=== PATIENT | male | born 1965 | race Caucasian/White ===

== ENCOUNTER 2016-11-19 14:38 | Emergency (ER) | payer MEDICARE ==
[~2016-11-19] VITALS: Ht 195.6 cm; Wt 81.6 kg
[2016-11-19] MEDS ORDERED: PRILOSEC20 M1 PO (15:24)
--- NOTE | 2016-11-19 15:25 | Emergency Room Report ---
History of Present Illness Time Seen by MD Carlson Presenting Problem in Triage Pt arrived:Ambulance Stretcher Presenting Problem:FEELS THOUGH SOMETHING STUCK IN THROAT Onset of symptoms date/time:11/19/16 or onset unknown for: Treatment Prior to Arrival: MANAGER IMAGE Provided by: Sepsis Risk Assessment: Temp: 98.4 B/P: 147/103 MAP: 117 Pulse: 108 Resp: 20 Recent fever? N Clinical Suspician of Infection? N Mental Status: 2 - Mildly Altered Sepsis Risk:Possible Sepsis Risk Have you (or family members/close friends) recently traveled outside the [place]? N If Yes, where/when: Have you had exposure to infectious disease within the past month? N TB? Other? Specify: he states about 30 minutes prior to arrival he had a burrito stuck in his throat he had a foreign body sensation in severity and is in her wrists but he states he tried to drink water but the water came back up and he could not swallow water. He states he hasn't tried to swallow water since then he states he is not having to spit up his own saliva. Date she has had problems with things getting stuck in his throat in the past but it never lasted this long and he was always able to drink water despite the foreign body sensation in the past. States she has not had a scope done in the past he states he has no reflux symptoms that he knows of denies any heartburn denies any chest pain abdominal pain or any pain. He states he thinks he can drink water now ALLERGIES Coded Allergies: No Known Allergies (11/19/16) History Medical History General CAD? No Angina: No [place]: No Hypertension? No Hyperlipidemia? No CHF? No DVT? No PE? No COPD? No Asthma? No Anemia? No GERD? No Gastric ulcers? No GI Bleed? No Hernia? No Hypothyroidism? No CVA? No Seizures? No Diabetes? No Renal Insuffiency? No End Stage Renal Disease? No UTI? No Stones? No BPH? No GB Disease: No Nephritic Syndrome? No Asplenia? No Hepatitis? No Sickle Cell Disease? No Arthritis? No Migraines? No Cataracts? No Glaucoma? No MRSA? No HIV? No TB? No Anxiety? No Depression? No Cancer? No More? No Immunization Hx Ped.Immunizations UTD No DT/Tetanus Unknown Surgical Hx Previous Surgery?Y RIGHT ARM Social History Smoking Hx Smoker: Former Smoker Tobacco: No Alcohol Alcohol: No Review of Systems All Other Systems Reviewed and Negative Physical Exam Vital Signs Vital Signs Date Time Temp Pulse Resp B/P Pulse O2 O2 Flow FiO2 Ox Delivery Rate 11/19 1443 98.4 108 20 147/103 95 11/19 1442 98.4 General Appearance: Nontoxic Head: Normocephalic, without obvious abnormality, atraumatic. Eyes: conjunctiva/corneas clear ENT: Mucous membranes moist. Throat is clear Neck is unremarkable on visual inspection Neck: No jugular venous distention. Cardiac: regular rate and rhythm Lungs: Clear to auscultation bilaterally Abdomen: Nontender, Nondistended, positive bowel sounds, no rebound Extremities: no edema Musculoskeletal: No chest wall tenderness Skin: No rashes or lesions to exposed skin. Neurologic: Alert. No gross focal deficits Psychiatric: Normal affect (Navjot Ca MD) General Appearance normal appearance Respiratory Status No: respiratory distress. Cardiovascular normal exam Neurologic alert Medical Decision Making LABS/Meds/Orders Pt receiving controlled substance in ED? No Comment H and drank 12 ounces of water without any problems. S with outpatient follow-up a soft diet until cleared by scope. Place on some antacids Departure Departure Time of Disposition 1522 Disposition DC Home or Self Care(routine) Clinical Impression Primary Impression: Esophageal obstruction due to food impaction Condition STABLE Referrals Scotty Orozco MD NO REFERRAL (Family) ARELY GUERRERO MD Patient Instructions Soft Diet Additional Instructions Maintain a soft diet until you get cleared by the referral doctors you will need to have a scope done for evaluation Discharge Counseling Counseled pt/family regarding diagnosis, home care, follow up needs Prescriptions Current Visit Scripts OMEPRAZOLE MAGNESIUM (Prilosec 20MG) 20 MG PO DAILY #14 TCP ED Critical Care Critical Care No If Critical Care minutes are documented, the time involved in the performance of seperately reportable procedures was not counted toward critical care time documented. I directly delivered medical care to this critically ill and/or injured patient. Timely evaluation and treatment was necessary to address the significant organ system(s) dysfunction present in this patient. at 1525
[2016-11-19 15:42] VITALS: BP 117/72
== END 2016-11-19 15:45 | disposition home or self-care (01) ==
LOC: ER 14:38
DX: K22.2 Esophageal obstruction (principal); Z87.891 Personal history of nicotine dependence